=== PATIENT | female | born 1985 | race African-American/Black ===

== ENCOUNTER 2018-04-06 09:30 | Emergency (ER) | payer SELFPAY ==
[~2018-04-06] VITALS: Ht 170.2 cm; Wt 69.0 kg
[2018-04-06 09:38] VITALS: BP 110/80
== END 2018-04-06 12:07 | disposition home or self-care (01) ==
LOC: ER 10:36
DX: K04.7 Periapical abscess without sinus (principal); F17.200 Nicotine dependence, unspecified, uncomplicated
CPT/HCPCS: 81025; 99283